=== PATIENT | female | born 1965 | race Caucasian/White ===

== ENCOUNTER 2018-03-29 02:02 | Emergency (ER) | payer SELFPAY ==
--- NOTE | 2018-03-29 08:50 | ULT ---
PRELIMINARY REPORT/[facility]/EMERGENTY AFTER-HOURS PROCEDURE US Abdomen Limited, Right Upper Quadrant EXAM DATE/TIME: 03/29/2018 2:25 AM CLINICAL HISTORY: Pain and signs and symptoms; Nausea and vomiting and other: Diarrhea; Abdominal chuckie n; Epigastric TECHNIQUE: Real-time ultrasound of the right upper quadrant with image documentation. COMPARISON: No relevant prior studies available. FINDINGS: Liver: The liver is enlarged and diffusely echogenic compatible with steatosis. No intrahepatic bile duct dilation. Gallbladder: Unremarkable. No gallstones, gallbladder wall thickening or pericholecystic fluid. neurology technologist noted a sonographic negative Henson's sign. Common bile duct: Unremarkable as visualized. No stones. No dilation. Pancreas: Unremarkable as visualized. Right kidney: Unremarkable. No stones. No solid mass. No hydronephrosis. IMPRESSION: No acute findings. Thank you for allowing us to participate in the care of your patient. Dictated and Authenticated by: Ramy Starks MD 03/29/2018 3:34 AM Central Time ([place] & [place]) FINAL REPORT GALLBLADDER ULTRASOUND RIGHT UPPER QUADRANT: HISTORY: Abdominal pain. Epigastric pain. Nausea and vomiting and diarrhea. TECHNIQUE: Real-time, madsen scale, color Doppler, and spectral analysis of the right upper quadrant of the abdome n was performed. FINDINGS: The visualized portions of the pancreas are unremarkable. The liver is enlarged with marked increase d echotexture. The liver measures 24 cm in length. Gallbladder wall thickness is normal. No cholelithiasis. Common bile duct is normal. The right kidney measures 12.6 x 5.4 x 5.6 cm. Sonographic Henson's sign is negative according to [facility] techn[facility]. The portal vein is patent with antegrade flow. Common bile duct is normal. IMPRESSION: Hepatomegaly and diffuse hepatic steatosis. No cholelithiasis or evidence of cholecystitis. CODE: QA POS: [facility]
== END 2018-03-29 06:24 | disposition home or self-care (01) ==
LOC: ERS 02:02
DX: R10.11 Right upper quadrant pain (principal); F10.99 Alcohol use, unspecified with unspecified alcohol-induced disorder; R74.8 Abnormal levels of other serum enzymes; I10 Essential (primary) hypertension; F17.210 Nicotine dependence, cigarettes, uncomplicated; F41.9 Anxiety disorder, unspecified; Z79.899 Other long term (current) drug therapy
CPT/HCPCS: 76705

== ENCOUNTER 2018-10-09 22:10 | Inpatient (IN) | payer SELFPAY ==
[2018-10-10] MEDS ORDERED: Ondansetron PF 4 MG/2 ML Vial IVP PRN (00:31)
[2018-10-10] MEDS ORDERED: Ondansetron ODT 4 MG TAB PO PRN (00:31)
[2018-10-10 00:36] VITALS: BMI 25.0
[2018-10-10] MEDS ORDERED: Acetaminophen 325 MG TAB PO PRN (00:37)
[2018-10-10] MEDS: Morphine 4 MG/ML VIAL SLOW IVP PRN ×4 (00:47→16:33)
[2018-10-10] MEDS: Sodium Chloride 0.9% 1,000 ML IV SCH ×3 (01:04→17:11)
[2018-10-10] MEDS: Ketorolac Tromethamine 30 MG/ML VIAL IVP SCH ×4 (01:26→20:29)
[2018-10-10] MEDS: Gentamicin Sulfate 80 MG in Premix Bag 1 BAG IVPB SCH ×2 (05:31→14:10)
[2018-10-10] MEDS ORDERED: Ondansetron PF 4 MG/2 ML Vial ONE ×2 (06:24→17:31)
[2018-10-10] MEDS ORDERED: Lidocaine 1% (PF) 30 ML VIAL ONE (06:42)
[2018-10-10] MEDS ORDERED: Bupivacaine PF 0.5% 30 ML VIAL ONE (06:42)
[2018-10-10] MEDS ORDERED: Thrombin 5000 UNITS/5 ML VIAL ONE ×2 (06:43)
[2018-10-10] MEDS ORDERED: Bacitracin Zinc Ointment 30 gm TUBE ONE ×2 (06:43→06:48)
[2018-10-10] MEDS ORDERED: Famotidine/PF 20 mg/2ml Vial ONE (06:44)
[2018-10-10] MEDS ORDERED: Sodium Chloride 0.9% 30 ML ONE (06:48)
[2018-10-10] MEDS ORDERED: Betamet Acet/Betamet Na Ph 30 MG/5 ML VIAL ONE (06:48)
[2018-10-10] MEDS ORDERED: Fentanyl 250 MCG/5 ML VIAL ONE (06:58)
[2018-10-10] MEDS ORDERED: Morphine 4 MG/ML VIAL ONE (06:58)
[2018-10-10] MEDS ORDERED: Midazolam HCl 2 mg/2 ml Vial ONE (07:19)
[2018-10-10] MEDS ORDERED: Sodium Chloride 0.9% 20 ML ONE (09:00)
--- NOTE | 2018-10-10 10:10 | RAD ---
FOUR VIEWS LEFT MIDDLE FINGER: History: Pinning of middle finger fracture. Comparison: 10-09-18 FINDINGS/IMPRESSION: Multiple limited intraoperative fluoroscopic views of the middle finger were submitted for interpreta tion. The patient has ongoing percutaneous fixation of the fracture of the distal phalanx. This K wir e spans the DIP joint of the finger. POS: [facility]
[2018-10-10] MEDS ORDERED: Promethazine HCl 25 MG/ML VIAL IM PRN ×2 (10:46→11:03)
[2018-10-10] MEDS ORDERED: Promethazine HCl 25 MG/ML VIAL SLOW IVP PRN (10:46)
[2018-10-10] MEDS ORDERED: Ondansetron HCl/PF 4 MG/2 ML Vial IVP PRN (10:46)
[2018-10-10] MEDS ORDERED: Fentanyl 100 MCG/2 ML VIAL ONE ×3 (10:59→12:02)
[2018-10-10] MEDS ORDERED: HYDROcodone/Acetaminophen 5/325 mg Tablet PO PRN (11:03)
[2018-10-10] MEDS ORDERED: Ondansetron PF 4 MG/2 ML Vial IV PRN (11:03)
[2018-10-10] MEDS ORDERED: Milk Of Magnesia 30 ML UDCUP PO PRN (11:03)
[2018-10-10] MEDS ORDERED: Bisacodyl 10 MG SUPP PR PRN (11:03)
[2018-10-10] MEDS ORDERED: TETANUS AND DIPHTHERIA TOX/PF 0.5 ML DISP.SYRIN IM SCH (11:15)
[2018-10-10] MEDS ORDERED: Communication Order-Pharmacy FS SCH (11:15)
[2018-10-10] MEDS: Sodium Chloride 0.9% 100 ML IV SCH ×4 (13:55→17:08)
[2018-10-10] MEDS: HYDROcodone/Acetaminophen 10/325 mg Tablet PO PRN ×2 (15:07→19:21)
[2018-10-10] MEDS: Ampicillin/Sulbactam 3 GM in Sodium Chloride 0.9% 100 ML IVPB SCH ×2 (15:08→23:42)
[2018-10-10] MEDS ORDERED: Lidocaine 1% PF 5 ML VIAL ONE (17:31)
[2018-10-10] MEDS ORDERED: PROPOFOL 200 MG/20 ML VIAL ONE (17:31)
[2018-10-10] MEDS ORDERED: Dexamethasone 20 MG/5 ML VIAL ONE (17:31)
[2018-10-10] MEDS ORDERED: CEFAZOLIN 1 GM VIAL ONE (17:31)
[2018-10-10] MEDS ORDERED: Ketorolac Tromethamine 30 MG/ML VIAL ONE (17:31)
[2018-10-10] MEDS ORDERED: Sterile Water 10 ML VIAL ONE (17:31)
[2018-10-10] MEDS ORDERED: Metoprolol Tartrate 5 MG/5 ML VIAL ONE (17:31)
[2018-10-10] MEDS: Oxazepam 10 MG CAP PO SCH (20:29)
[2018-10-10] MEDS: Aspirin 81 mg Enteric Coated Tablet PO SCH (20:30)
[2018-10-11] MEDS: Ketorolac Tromethamine 30 MG/ML VIAL IVP SCH ×3 (02:28→13:36)
[2018-10-11] MEDS: Morphine 4 MG/ML VIAL SLOW IVP PRN ×3 (02:32→16:24)
[2018-10-11] MEDS: Sodium Chloride 0.9% 1,000 ML IV SCH ×2 (04:05→12:20)
[2018-10-11] MEDS: Oxazepam 10 MG CAP PO SCH ×2 (06:03→13:36)
[2018-10-11] MEDS: Ampicillin/Sulbactam 3 GM in Sodium Chloride 0.9% 100 ML IVPB SCH (06:03)
[2018-10-11] MEDS: Aspirin 81 mg Enteric Coated Tablet PO SCH (07:43)
--- NOTE | 2018-10-11 10:27 | OP ---
DATE OF PROCEDURE: 10/10/2018 PREOPERATIVE DIAGNOSES: Dog bite wounds, as follows: 1. Two dog bite wounds over the suprapatellar pouch of the left knee. 2. Two left forearm wounds over the intersection site of the left forearm, 1 cm. 3. A 5-cm toe dog bite wound with open joint and fracture distal interphalangeal joint, possible digital nerve laceration and other deep ligamentous structure injury. POSTOPERATIVE DIAGNOSES: As follows: 1. At the left long finger, open distal phalanx fracture, both mallet type and an ulnar avulsion fracture making this complex fracture case with open joint involvement. 2. Open distal phalangeal involvement. 3. Collateral ligament tear, ulnar aspect, distal phalangeal joint. 4. A 5 cm wound open to extensor tendon plus laceration. 5. At the left distal thigh, a 3-cm total wound. Dog bite through the fat down to, but not violating the joint. Also extensor tendon laceration at the zone 1 at the distal phalangeal joint of the long finger. 6. At the long finger and distal forearm, we found brachioradialis, extensor carpi radialis brevis, extensor carpi radialis longus and 1st dorsal compartment tenosynovitis with violation of the subsheath and some dog hair contamination was seen minimally on the skin outside all lacerations. PROCEDURES PERFORMED: 1. Debridement to a short distance at the left middle/long finger debridement. 2. Distal forearm fracture #2 debridement of 5-cm wound. Closure of 5-cm wound. 3. Repair of ulnar collateral ligament, distal interphalangeal joint. 4. Open reduction and internal fixation of avulsion fracture, ulnar base of the distal radius. 5. Open reduction and internal fixation of mallet finger fracture. The fracture was at the distal portion of the distal phalangeal joint. 6. Neuroplasty, radial digital nerve. 7. C-arm supervision at the left forearm. a. Wound debridement. b. Wound closure 1 cm. c. Radical extensor tenosynovectomy to the brachioradialis, extensor carpi radialis brevis. d. Extensor carpi radialis ulnaris. e. Extensor pollicis. f. Abductor pollicis longus. 8. Release 2nd dorsal compartment extensor at the left thigh. a. Debridement of wound. b. Closure of wound with 3 cm total over the drain. TOURNIQUET TIME: Left lower extremity tourniquet 85 minutes. Left lower extremity tourniquet 8 minutes. ESTIMATED BLOOD LOSS: 25 mL. C-ARM: Yes. DESCRIPTION OF PROCEDURE: After successful general LMA technique, the nerve prepped and draped. The patient then had time-out. After appropriate time-out , procedure began. She was less than right at 12 hours from injury, so we felt that we could do a primary debridement and could be closable. We then began with the prep and drape of both simultaneously at the lower limb with the knee exposed and upper limb with all the area of distal elbow exposed. We then inflated the tourniquet after exsanguination of the limb and tourniquet 250 mmHg pressure after anesthesia given via MAC anesthesia was successful. We then extended the midlateral radial incision left by the dog 1.5 cm distal and 1 cm proximal. This allowed to expose neurovascular bundle and a formal neuroplasty was performed of the radial digital nerve, which revealed some small amount of particles with clot, no true dog hair, and no laceration at the trifurcation or distal. We then inspected the patient's dorsal area and found the patient had a very loose terminal extensor tendon underneath this. Lurking was a bony fragment as well. We then turned our attention to the contralateral side of the same finger, extended the incision 1.5 cm distal, one proximal and realized that here we had a tendon that was involved with open wound into the joint. Once this was done, we then debrided the material associated with open fracture with the following techniques for the mallet finger as we did for the other portion of fracture A. Excision technique B, use of curette [place] dental tool. Pulsavac irrigation over 5 L on this finger, antibiotics inside. The contamination found was minimal hematoma. No dog hair or particles seen in this portion of wound. Cultures were taken. This is the same as with radial ulnar aspects. The patient then had both the radial side where laceration did not penetrate the joint and the ulnar side of the laceration did penetrate the joint. Finished the curettage debridement as described above. It was irrigated with a total of 2.5 L of Pulsavac irrigation with each side of the joint and each wound. Once this was done, we then had two mid-lateral incisions minimum of 2 cm and these were two used to finish the process. At the long finger wound, once we had sent cultures after post debridement, we then were able to distract the joint, we elevated the radial side near the terminal tendon insertion and found that there was a sliver of bone 2 to 3 mm wide and it had a chondral flap that took up approximately 50% of the joint backed up by little osseous material at the superior aspect which needed to be put back as anatomically as possible. We visualized the joint, irrigated the joint. We placed a K-wire as a joystick, distracted the joint, allowed the piece to take almost as hoh position as we could only see minimal rotation change, but there was no gap formation in the x-ray column output. We then passed two K-wires 0.35 through the distal phalanx to the construct in the proximal phalanx. It did not move after this. We had the pins, once confirmed falling inside the plane, anatomical and clinically we had excellent position. We then began to prepare the patient for the ulnar side of the procedure. Now, we left the radial side, with the ulnar side, saw the bone where I have have debrided the fracture. It was a small avulsed flexor collateral ligament completely on this, so we took the collateral ligament, reduced this fragment and slightly over reduced it and then placed a heavy 5-0 Prolene suture to complete the repair. This was stable. We then turned our attention to the left dorsal radial forearm, where the patient had initially 1 cm x 2 mm dog bite wound, debrided the edges, extended the incision 2 cm distal and 2.5 cm proximal, and we were able to identify where the dog teeth had violated the brachioradialis sheath without cutting the brachioradialis, the sheath at the intersection pointed to both ECRB, ECRL, as well as APL and EPB. All of these then because it was dog particles, underwent radical extensor tenosynovectomy, it could not be used for other purposes at this time. Then the radical tenosynovectomy, we had cultures sent, we irrigated this area with 3 L normal saline and Pulsavac pressure. We then released the 2nd dorsal compartment with complete visualization. Irrigation was accomplished one last time with Pulsavac and then we released the tourniquet all sites. We were happy with the construct proximal to the C-arm. Visually, there was excellent reduction of the fragment, and we were able to close all wounds with a simple one-layer closure interrupted simple sutures with no complications at the long/middle finger of the left hand. We then turned our attention to the lower extremity, all wounds were closed in a bulky dressing had been applied, reinforced for splint and sterile environment to the hand. We visualized the lower extremity, inflated the tourniquet to 250 mmHg pressure, exsanguination of the limb, we made an incision deep through the 2-cm mid thigh laceration dorsally just lateral to the vastus medialis and then one just above the vastus medialis oblique muscle. We carried this to both the skin, subcutaneous tissues and saw where there was a small hematoma, they had violated some of the fascia, but did not penetrate the tendon or fascia. Performed a reverse arthrocentesis, placed 80 mL of normal saline into the knee to see if any leak got through any of these incisions and it did not. We kip most of the fluid and in the same way it had been in place, but in reverse. Then, we finished our debridement using the following techniques: Instrumentation: A. Curettes, [facility] tenotomy scissors, and Adson's. B. Down to but not including fascia in both the wounds, which were only approximately 2 cm from each other. C. We found no gross contamination except for small amount of hematoma. No violation of muscle belly, and there were no complications. Once we finished irrigating these two wounds with 3000 mL normal saline, divided equally amongst each other mostly to common Pulsavac pressure. We then closed the wound with a superior wound getting a drain and closure with a 3-0 nylon and the distal wound getting 3-0 nylon dressing as well. Closed it well. We then placed bacitracin, Adaptic, 4 x 4s, sponge, Kerlix on the wound and the patient left the operating room with a drain in place in the superior wound, half inch Hemovac small size and there were no complications. Job ID: [id number]
[2018-10-11 12:04] VITALS: TEMP 98.1
[2018-10-11] MEDS: traMADol HCl 50 MG TAB PO PRN ×2 (12:25→18:18)
[2018-10-11 16:03] VITALS: BP 150/94
== END 2018-10-11 19:21 | disposition home or self-care (01) | DRG 464 ==
LOC: SJJU 23:38
PROVIDERS: ADMIT Orthopaedic Surgery Hand Surgery; ATTEND Orthopaedic Surgery Hand Surgery
PROC: 0JBM0ZZ Excision of Left Upper Leg Subcutaneous Tissue and Fascia, Open Approach (ICD-10-PCS; principal; 2018-10-10)
PROC: 0MQ40ZZ Repair Left Elbow Bursa and Ligament, Open Approach (ICD-10-PCS; 2018-10-10)
PROC: 0PBJ0ZZ Excision of Left Radius, Open Approach (ICD-10-PCS; 2018-10-10)
PROC: 0PBV0ZZ Excision of Left Finger Phalanx, Open Approach (ICD-10-PCS; 2018-10-10)
PROC: 0PBL0ZZ Excision of Left Ulna, Open Approach (ICD-10-PCS; 2018-10-10)
PROC: 0PSV04Z Reposition Left Finger Phalanx with Internal Fixation Device, Open Approach (ICD-10-PCS; 2018-10-10)
PROC: 0PSL04Z Reposition Left Ulna with Internal Fixation Device, Open Approach (ICD-10-PCS; 2018-10-10)
PROC: 0PSJ04Z Reposition Left Radius with Internal Fixation Device, Open Approach (ICD-10-PCS; 2018-10-10)
PROC: 01Q60ZZ Repair Radial Nerve, Open Approach (ICD-10-PCS; 2018-10-10)
PROC: 0LB60ZZ Excision of Left Lower Arm and Wrist Tendon, Open Approach (ICD-10-PCS; 2018-10-10)
DX: S52.202B Unspecified fracture of shaft of left ulna, initial encounter for open fracture type I or II (principal); S62.603B Fracture of unspecified phalanx of left middle finger, initial encounter for open fracture; S81.052A Open bite, left knee, initial encounter; S91.159A Open bite of unspecified toe(s) without damage to nail, initial encounter; W54.0XXA Bitten by dog, initial encounter; Y92.9 Unspecified place or not applicable; I10 Essential (primary) hypertension
CPT/HCPCS: 76001; 87070; 87205; A4216; J0131; J0295; J0690; J0702; J1100; J1580; J1885; J2001; J2250; J2270; J2405; J2704; J3010; J3490; J7050; S0020; S0028

== ENCOUNTER 2018-10-16 19:26 | Day surgery (SDC) | payer SELFPAY ==
[2018-10-16] MEDS ORDERED: Bupivacaine PF 0.5% 30 ML VIAL ONE (21:24)
[2018-10-16] MEDS ORDERED: Bacitracin Zinc Ointment 30 gm TUBE ONE (21:24)
[2018-10-16] MEDS ORDERED: Sodium Chloride 0.9% 10 ML ONE (21:34)
[2018-10-16] MEDS ORDERED: Midazolam HCl 2 mg/2 ml Vial ONE (21:38)
[2018-10-16] MEDS ORDERED: Fentanyl 100 MCG/2 ML VIAL ONE (21:38)
[2018-10-17] MEDS ORDERED: Ketorolac Tromethamine 30 MG/ML VIAL ONE (00:14)
--- NOTE | 2018-10-17 02:26 | OP ---
DATE OF PROCEDURE: 10/16/2018 PREOPERATIVE DIAGNOSES: Left middle finger distal phalangeal subluxation with implant of K-wire and displacement of previously well reduced mallet finger avulsion fracture. PROCEDURES PERFORMED: 1. Removal of previous wire. 2. C-arm supervision. 3. Open joint reduction with pinning, 0.045 K-wire. 4. Open reduction and internal fixation with tendon reattachment using a button with heavy Prolene 3-0 technique augmented by sagittal plane obliquely oriented K-wire as a buttress. FINDINGS: 2 x 0.035 K-wires were removed because of no longer holding the joint reduced or in extension. ANESTHESIA: General LMA technique augmented by 50 mL of 0.5% Marcaine, metacarpophalangeal joint block without epinephrine at the small finger on the left side. DESCRIPTION OF PROCEDURE: After successful general LMA technique, limb was prepped and draped. Time-out was done appropriately. We then injected with 50 mL of 0.5% Marcaine metacarpophalangeal block level to the level of distal middle finger. We then exsanguinated the limb, inflated the tourniquet to 250 mmHg pressure. We removed the previous sutures and that may turn the medial and lateral, radial and ulnar incision into H-type incision by transverse limb just proximal to the DIP joint. Medially, we could see that the fragment was free flowing, the joint had no stability or ambiguity using using flexion 40 degrees and wires were loosened in the palmar direction. After this, we removed the wires, we re-reduced the bony fragment to make sure it would still fit and then did a [id number] 3-0 Prolene into the tendon, ran it dorsal to the small less than 1 mm thick ridge of bone dorsally and palmar. Then, we used 2 Adelso needles to drill holes distally and we then let the wire serve as a suture buttress. Once we re-reduced the joint, pushed it down as deep as possible, held the joint approximately 5 degrees of flexion and then placed a 0.045 K-wire across this construct. There was no gross motion whatsoever that could be elicited at the distal interphalangeal joint of this digit and then we tried with a obliquely oriented wire that was placed almost a flat/10-degree angle to the horizontal into the distal phalanx. These were then cut, flushed with the skin, and would not visualize directly. The patient then obtained hemostasis after releasing the tourniquet and the time was 66 minutes. We then closed the incision with interrupted 4-0 nylon while the patient had the wound closed. Bulky dressing applied with a palmar splint. The patient left the operating room without evidence of anesthetic or operative complication. Job ID: [id number]
--- NOTE | 2018-10-17 08:53 | RAD ---
LEFT MIDDLE FINGER ONE VIEW: History: 53-year-old female with history of left middle finger pinning. Comparison: 10-09-18 FINDINGS: Small pins are noted stabilizing the displaced fracture through the distal phalanx of the middle fing er. IMPRESSION: Internal fixation distal phalanx middle finger. POS: [facility]
== END 2018-10-17 01:05 | disposition home or self-care (01) ==
LOC: SDC/OP 19:26
PROVIDERS: ATTEND Orthopaedic Surgery Hand Surgery
PROC: 0LM80ZZ Reattachment of Left Hand Tendon, Open Approach (ICD-10-PCS; principal; 2018-10-16)
PROC: 0PSV04Z Reposition Left Finger Phalanx with Internal Fixation Device, Open Approach (ICD-10-PCS; principal; 2018-10-16)
DX: S62.633A Displaced fracture of distal phalanx of left middle finger, initial encounter for closed fracture (principal); I10 Essential (primary) hypertension; G40.909 Epilepsy, unspecified, not intractable, without status epilepticus; Z87.891 Personal history of nicotine dependence; Z79.2 Long term (current) use of antibiotics; Z79.899 Other long term (current) drug therapy; Z98.890 Other specified postprocedural states; W54.8XXA Other contact with dog, initial encounter
CPT/HCPCS: 76001; 96372; J1885; J2250; J3010; J3490; S0020